=== PATIENT | female | born 1965 | race African-American/Black ===

== ENCOUNTER 2019-10-06 12:22 | Observation (INO) ==
[2019-10-06] MEDS ORDERED: LACTATED RINGERS 1,000 ML IV STA (12:35)
[2019-10-06 12:52] LABS: Basophils # 0.1 10*3/uL (0.0-0.2); Basophils % 0.6 % (0.0-0.8); Eosinophils # 0.1 10*3/uL (0.0-0.87); Eosinophils % 0.9 % (0.00-10.9); Hematocrit 39.9 VOL% (35.7-47.0); Hemoglobin 13.2 GM/DL (12.0-16.0); Immature Granulocytes % 4.3 %; Immature Granulocytes Absolute 0.41 #; Lymphocytes # 2.5 10*3/uL (1.4-4.0); Lymphocytes % 26.7 % (21.3-54.2); Mean Corpuscular HGB Conc 33.1 GM/DL (32-36); Mean Corpuscular Volume 92.4 FL (87-102); Mean Platelet Volume 10.7 FL (9.6-12.0); Monocytes % 6.1 % (1.7-12.7); Neutrophils % 61.4 % (38.7-73.9); Platelet Count 312 T/CUMM (130-400); Red Blood Count 4.32 MC/CUMM (3.8-5.5); White Blood Count 9.5 T/CUMM (4-12)
[2019-10-06 13:07] LABS: PT Patient Result 10.5 SECS (9.8-11.9)
[2019-10-06 13:13] LABS: Alanine Aminotransferase 24 U/L (13-56); Albumin 3.5 G/DL (3.4-5.0); Alkaline Phosphatase 58 U/L (45-117); Amylase 80 U/L (25-115); Aspartate Amino Transferase 27 U/L (0-37); Bilirubin,Total < 0.39 MG/DL (0.2-1.0); Blood Urea Nitrogen 22 MG/DL (7-18); Calcium 9.4 MG/DL (8.5-10.1); Estimated Glom Filtration Rate 80 ML/MIN; Glucose 125 MG/DL (74-106); Osmolality,Calculated 282.4 MOS/KG (273-304); Total Protein 7.9 G/DL (6.4-8.3)
[2019-10-06 13:46] LABS: Apearance,Urine CLEAR (Clear); Bilirubin,Urine Negative (Negative); Blood, Urine Negative (Negative); Glucose,Urine (UA) Negative (Negative); Ketones,Urine Negative (Negative); Nitrite,Urine Negative (Negative); Protein,Urine Negative; RBC,Urine 2 /HPF (0-4); Urine Color Yellow (Yellow); Urine Urobilinogen < 2.0 EU/DL (0.2-1.0); WBC,Urine 1 /HPF (0-6)
[2019-10-06 13:47] LABS: Barbiturates Screen,Urine Negative (Negative); Benzodiazepines Screen,Urine Negative (Negative); Cannabinoid Screen,Urine Negative (Negative); Opiate Screen,Urine Negative (Negative); Phencyclidine Screen,Urine Negative (Negative)
[2019-10-06] MEDS ORDERED: ACETAMINOPHEN 325 MG TABLET PO PRN (14:15)
[2019-10-06] MEDS ORDERED: ONDANSETRON 4 MG/2 ML VIAL IV PRN ×2 (14:15→16:40)
[2019-10-06] MEDS ORDERED: BISACODYL 5 MG TABLET PO PRN (14:15)
[2019-10-06] MEDS ORDERED: ALBUTEROL/IPRATROPIUM 3 ML NEB RESP TX PRN (14:15)
[2019-10-06] MEDS ORDERED: KETOROLAC 15 MG/1 ML VIAL IV PRN (14:15)
[2019-10-06] MEDS: PIPERACILLIN/TAZOBACTAM 3,375 MG in SODIUM CHLORIDE 0.9% 100 ML IV SCH (15:17)
[2019-10-06] MEDS: LACTATED RINGERS 1,000 ML IV SCH (15:17)
[2019-10-06] MEDS ORDERED: ePHEDrine 50 MG/ML AMP ONE (16:28)
[2019-10-06] MEDS ORDERED: propofoL 200 MG/20 ML VIAL IV ONE (16:29)
[2019-10-06] MEDS ORDERED: LIDOCAINE 2% 5 ML VIAL ONE (16:29)
[2019-10-06] MEDS ORDERED: ONDANSETRON 4 MG/2 ML VIAL ONE ×2 (16:29→16:41)
[2019-10-06] MEDS ORDERED: MIDAZOLAM 2 MG/2 ML VIAL ONE (16:29)
[2019-10-06] MEDS ORDERED: SEVOFLURANE 1 UNIT/15 MINUTE INH ONE (16:29)
[2019-10-06] MEDS ORDERED: fentaNYL 100 MCG/2 ML VIAL ONE (16:29)
[2019-10-06] MEDS ORDERED: PHENYLEPHRINE 1 MG/10 ML SYRINGE IV ONE (16:30)
[2019-10-06] MEDS ORDERED: SUCCINYLCHOLINE 200 MG/10 ML VIAL ONE (16:30)
[2019-10-06] MEDS ORDERED: HYDROmorphone 2 MG/1 ML VIAL ONE (16:41)
[2019-10-06] MEDS: HYDROmorphone 2 MG/1 ML VIAL IV PRN ×4 (16:42→17:03)
[2019-10-06] MEDS ORDERED: SODIUM CHLORIDE 0.9% 1,000 ML IV ONE (19:56)
[2019-10-06 20:33] LABS: Hematocrit 30.8 VOL% (35.7-47.0)
[2019-10-06 20:35] LABS: Hemoglobin 9.9 GM/DL (12.0-16.0)
[2019-10-07] MEDS: PIPERACILLIN/TAZOBACTAM 3,375 MG in SODIUM CHLORIDE 0.9% 100 ML IV SCH ×4 (00:02→21:35)
[2019-10-07] MEDS: LACTATED RINGERS 1,000 ML IV SCH (06:50)
[2019-10-07 07:07] LABS: Basophils % 0.6 % (0.0-0.8); Eosinophils # 0.1 10*3/uL (0.0-0.87); Eosinophils % 0.8 % (0.00-10.9); Hematocrit 25.1 VOL% (35.7-47.0); Immature Granulocytes % 0.5 %; Immature Granulocytes Absolute 0.03 #; Lymphocytes # 1.4 10*3/uL (1.4-4.0); Lymphocytes % 22.1 % (21.3-54.2); Mean Corpuscular HGB Conc 31.5 GM/DL (32-36); Mean Corpuscular Volume 95.8 FL (87-102); Mean Platelet Volume 10.6 FL (9.6-12.0); Monocytes % 11.5 % (1.7-12.7); Neutrophils % 64.5 % (38.7-73.9); Platelet Count 175 T/CUMM (130-400); Red Blood Count 2.62 MC/CUMM (3.8-5.5); Red Cell Distribution Width 13.5 % (9.3-17.3); White Blood Count 6.3 T/CUMM (4-12)
[2019-10-07 07:09] LABS: Hemoglobin 7.9 GM/DL (12.0-16.0)
[2019-10-07] MEDS: HYDROmorphone 2 MG/1 ML VIAL IV PRN ×2 (07:48→14:00)
[2019-10-07] MEDS: amLODIPine 10 MG TABLET PO SCH (09:03)
[2019-10-07] MEDS: PANTOPRAZOLE 40 MG TABLET PO SCH (09:03)
[2019-10-08] MEDS: PIPERACILLIN/TAZOBACTAM 3,375 MG in SODIUM CHLORIDE 0.9% 100 ML IV SCH ×3 (05:31→22:34)
[2019-10-08] MEDS: LACTATED RINGERS 1,000 ML IV SCH ×5 (05:31→14:56)
[2019-10-08] MEDS: PANTOPRAZOLE 40 MG TABLET PO SCH (08:03)
[2019-10-08] MEDS: amLODIPine 10 MG TABLET PO SCH (08:03)
[2019-10-09] MEDS: LACTATED RINGERS 1,000 ML IV SCH ×3 (05:51→14:39)
[2019-10-09] MEDS: PIPERACILLIN/TAZOBACTAM 3,375 MG in SODIUM CHLORIDE 0.9% 100 ML IV SCH ×3 (05:52→21:45)
[2019-10-09 06:33] LABS: Hematocrit 26.9 VOL% (35.7-47.0); Hemoglobin 8.7 GM/DL (12.0-16.0)
[2019-10-09] MEDS: PANTOPRAZOLE 40 MG TABLET PO SCH (08:42)
[2019-10-09] MEDS: amLODIPine 10 MG TABLET PO SCH (08:43)
[2019-10-10] MEDS: LACTATED RINGERS 1,000 ML IV SCH ×2 (02:50→11:53)
[2019-10-10] MEDS: PIPERACILLIN/TAZOBACTAM 3,375 MG in SODIUM CHLORIDE 0.9% 100 ML IV SCH (06:19)
[2019-10-10] MEDS: PANTOPRAZOLE 40 MG TABLET PO SCH (09:59)
[2019-10-10] MEDS: amLODIPine 10 MG TABLET PO SCH (09:59)
[2019-10-10 12:35] VITALS: BP 126/85
== END 2019-10-10 13:25 | disposition home or self-care (01) ==
LOC: EDBD → EDUNIT# → N.ED 12:22 → N.EDINP 12:22 → N.3E 15:25
PROVIDERS: ADMIT Surgery; ATTEND Surgery

== ENCOUNTER 2020-12-08 14:25 | Observation (INO) ==
[2020-12-08] MEDS ORDERED: ASPIRIN 325 MG TABLET PO STA (14:47)
[2020-12-08] MEDS ORDERED: NITROGLYCERIN SL 0.4 MG TABLET SL PRN (14:47)
[2020-12-08] MEDS ORDERED: LABETALOL 20 MG/4 ML SYRINGE IV STA (14:49)
[2020-12-08 15:39] LABS: Basophils % 0.7 % (0.0-0.8); Eosinophils # 0.2 10*3/uL (0.0-0.87); Eosinophils % 2.8 % (0.00-10.9); Hematocrit 40.4 VOL% (35.7-47.0); Hemoglobin 13.7 GM/DL (12.0-16.0); Immature Granulocytes % 0.2 %; Immature Granulocytes Absolute 0.01 #; Lymphocytes # 1.8 10*3/uL (1.4-4.0); Lymphocytes % 32.8 % (21.3-54.2); Mean Corpuscular HGB Conc 33.9 GM/DL (32-36); Monocytes % 5.6 % (1.7-12.7); Neutrophils % 57.9 % (38.7-73.9); Platelet Count 229 T/CUMM (130-400); Red Blood Count 4.49 MC/CUMM (3.8-5.5); Red Cell Distribution Width 12.5 % (9.3-17.3); White Blood Count 5.3 T/CUMM (4-12)
[2020-12-08 15:52] LABS: Calcium 8.7 MG/DL (8.5-10.1); Osmolality,Calculated 285.8 MOS/KG (273-304); Potassium 3.6 MMOL/L (3.5-5.1)
[2020-12-08] MEDS ORDERED: ACETAMINOPHEN 500 MG TABLET PO STA (16:04)
[2020-12-08] MEDS ORDERED: GLUCAGON 1 MG VIAL IM PRN (16:48)
[2020-12-08] MEDS ORDERED: ONDANSETRON 4 MG/2 ML VIAL IV PRN (16:48)
[2020-12-08] MEDS ORDERED: ACETAMINOPHEN 325 MG TABLET PO PRN (16:48)
[2020-12-08] MEDS ORDERED: DEXTROSE 50% 25 GM/50 ML VIAL IV PRN (16:48)
[2020-12-08] MEDS ORDERED: hydrALAZINE 20 MG/1 ML VIAL IV PRN (16:48)
[2020-12-08] MEDS ORDERED: ALUM/MAG/SIMETH/LIDO VISC 1:1 30 ML BOTTLE PO STA (16:57)
[2020-12-08] MEDS ORDERED: ENOXAPARIN 40 MG/0.4 ML SYRINGE SUBCUT SCH (17:00)
[2020-12-08] MEDS ORDERED: ALUM/MAG/SIMETH/LIDO VISC 1:1 30 ML BOTTLE PO ONE (17:11)
[2020-12-08] MEDS ORDERED: ALPRAZolam 0.5 MG TABLET PO PRN (18:32)
[2020-12-09 04:53] LABS: Basophils % 0.8 % (0.0-0.8); Eosinophils # 0.2 10*3/uL (0.0-0.87); Eosinophils % 3.8 % (0.00-10.9); Hematocrit 41.3 VOL% (35.7-47.0); Hemoglobin 13.6 GM/DL (12.0-16.0); Immature Granulocytes % 0.3 %; Immature Granulocytes Absolute 0.01 #; Lymphocytes # 1.7 10*3/uL (1.4-4.0); Lymphocytes % 41.5 % (21.3-54.2); Mean Corpuscular HGB Conc 32.9 GM/DL (32-36); Mean Corpuscular Volume 92.6 FL (87-102); Mean Platelet Volume 10.6 FL (9.6-12.0); Monocytes % 6.8 % (1.7-12.7); Neutrophils % 46.8 % (38.7-73.9); Platelet Count 250 T/CUMM (130-400); Red Blood Count 4.46 MC/CUMM (3.8-5.5); Red Cell Distribution Width 12.6 % (9.3-17.3)
[2020-12-09 05:11] LABS: Risk Ratio 4.16; VLDL CHOLESTEROL 34.4 MG/DL
[2020-12-09] MEDS ORDERED: POTASSIUM CHLORIDE 20 MEQ TABLET PO ONE (07:48)
[2020-12-09 08:48] VITALS: BP 139/90
[2020-12-09] MEDS ORDERED: amLODIPine 10 MG TABLET PO SCH (09:00)
[2020-12-09] MEDS ORDERED: PANTOPRAZOLE 40 MG TABLET PO SCH (09:00)
[2020-12-09] MEDS ORDERED: ASPIRIN CHEW 81 MG TABLET PO SCH (09:00)
[2020-12-09] MEDS ORDERED: ATORVASTATIN 40 MG TABLET PO SCH (21:00)
== END 2020-12-09 12:48 | disposition home or self-care (01) ==
LOC: N.EDINP 14:25 → N.ED 14:25 → SUATTDRO 16:48 → N.TELEN 19:57
PROVIDERS: ADMIT Internal Medicine; ATTEND Internal Medicine